=== PATIENT | male | born 1940 | race Two or more races ===

== ENCOUNTER 2017-01-30 22:06 | Inpatient (IN) | payer OTHER, MEDICAID ==
[~2017-01-30] VITALS: Ht 167.6 cm; Wt 91.2 kg
[~2017-01-30 22:06] MED LIST: KEFLEX500 MG ORAL
[2017-01-30 22:57] LABS: BASOPHILS % (AUTO) 0.8 % (0.0-2.0); EOSINOPHILS % (AUTO) 2.2 % (0.0-3.0); LYMPHOCYTES % (AUTO) 37.1 % (20.0-45.0); MEAN CORPUSCULAR HEMOGLOBIN 26.4 PG (27.0-31.0); MEAN CORPUSCULAR HGB CONC 32.1 G/DL (32.0-36.0); MEAN CORPUSCULAR VOLUME 82 FL (80-99); MEAN PLATELET VOLUME 6.2 FL (6.5-10.1); NEUTROPHILS % (AUTO) 47.9 % (45.0-75.0); PLATELET COUNT 295 K/UL (150-450); RED BLOOD COUNT 4.05 M/UL (4.70-6.10); WHITE BLOOD COUNT 7.1 K/UL (4.8-10.8)
[2017-01-30 23:09] LABS: ALANINE AMINOTRANSFERASE 15 U/L (3-41); ALBUMIN/GLOBULIN RATIO 1.5 (1.0-2.7); ANION GAP 10 (5-15); ASPARTATE AMINO TRANSFERASE 14 U/L (5-40); CALCIUM 9.5 mg/dL (8.6-10.2); CARBON DIOXIDE 26 mEQ/L (20-30); CHLORIDE 100 mEQ/L (98-107); CREATININE 1.2 mg/dL (0.7-1.2); HEMOLYSIS 4; POTASSIUM 5.3 mEQ/L (3.4-4.9); SODIUM 136 mEQ/L (135-145)
[2017-01-30 23:10] LABS: TROPONIN I < 0.30 ng/mL (<=0.30)
[2017-01-30 23:19] LABS: CKMB < 1.5 ng/mL (< 6.7)
[2017-01-30] MEDS ORDERED: Albuterol ud Inhalation HHN ONE (23:30)
[2017-01-31] VITALS (7 sets, daily range): BP systolic 127–142; BP diastolic 56–80
--- NOTE | 2017-01-31 00:57 | Emergency Room Report ---
History of Present Illness General Chief Complaint: Chest Pain Source: Patient Present Illness HPI 76YOM walk-in with substernal chest pain radiating to upper chest 8 hours prior while at work doing physical work. Took nitro many hours later with improvement in symptoms Now with just "a little pain." On Xarelto History of HTN, DM, HLD On digoxin Allergies: Coded Allergies: No Known Allergies (Unverified , 03/16/16) Patient History Past Medical History: DM, HTN, other - HLD Past Surgical History: pacemaker Pertinent Family History: none Social History: Denies: alcohol use, drug use, smoking Immunizations: UTD Reviewed Nursing Documentation: PMH: Agreed, PSxH: Agreed Nursing Documentation-PMH Hx Cardiac Problems: Yes - PACEMAKER Hx Hypertension: Yes Hx Pacemaker: Yes Hx Diabetes: Yes Review of Systems All Other Systems: negative except mentioned in HPI Physical Exam Vital Signs Date Time Temp Pulse Resp B/P Pulse Ox O2 Delivery O2 Flow Rate FiO2 01/30/17 22:17 98.1 60 16 153/70 98 Room Air Sp02 EP Interpretation: reviewed, normal General Appearance: normal inspection, well appearing, no apparent distress, alert, GCS 15, non-toxic Head: normocephalic Eyes: bilateral eye EOMI, bilateral eye PERRL ENT: normal ENT inspection, hearing grossly normal, normal voice Neck: normal inspection, full range of motion, supple, no bony tend Respiratory: normal inspection, lungs clear, normal breath sounds, no respiratory distress, no retraction, no wheezing Cardiovascular #1: regular rate, rhythm, no edema Gastrointestinal: normal inspection, normal bowel sounds, non tender, soft, no guarding, no hernia Genitourinary: no CVA tenderness Musculoskeletal: normal inspection, back normal, normal range of motion, Trisha' s Sign negative Neurologic: normal inspection, alert, oriented x3, responsive, data capture specialist III-XII nml as tested, motor strength/tone normal, speech normal Psychiatric: normal inspection, judgement/insight normal, mood/affect normal Skin: normal inspection, normal color, no rash Medical Decision Making Medicare Attestation I Derrell Moses MD hereby attest that the medical record entry for date of service, 06/10/16 accurately reflects signatures/notations that I made in my capacity as MD when I treated/diagnosed the above listed Medicare beneficiary. I attest that this information is true, accurate and complete to the best of my knowledge. I understand that any falsification, omission, or concealment of material fact may subject me to administrative, civil, or criminal liability. This patient warrants hospital admission for extreme of age and has a condition that cannot be treated as outpatient. Diagnostic Impression: Primary Impression: Chest pain Qualified Codes: R07.9 - Chest pain, unspecified Additional Impressions: Hyperkalemia Hyperglycemia ER Course chest pain - VSS. Afebrile - Improved since self-admin nitro - Was given PM dose of Xarelto in ED - ECG is ventricular paced - CXR: No PNA or CHF - pacer noted - trop 0 HyperK - Dig level pending. field technical assistant says "its a send out." - Was NOT given calcium - Give neb, insulin in ED Endorsed to Dr Stark as per [facility] for tele admit at 1am EKG Diagnostic Results Rate: other - Ventricular paced ST Segments: no acute changes Other Impression On xarelto ASA given to the pt in ED: No Chest X-Ray Diagnostic Results Chest X-Ray Diagnostic Results : Chest X-Ray Ordered: Yes # of Views/Limited/Complete: 1 View Indication: Chest Pain EP Interpretation: Yes Interpretation: no consolidation, no effusion, no pneumothorax, no acute cardiopulmonary disease, other - + pacemaker Impression: No acute disease Interpreting ER Provider: Electronically signed by Dr Moses Last Vital Signs Date Time Temp Pulse Resp B/P Pulse Ox O2 Delivery O2 Flow Rate FiO2 01/31/17 00:04 60 17 100 Room Air 01/30/17 22:17 98.1 153/70 Status: improved Disposition: ADMITTED INPATIENT Condition: Serious Referrals: PREFERRED [facility],REFERRING (PCP) DERRELL MOSES M.D. Jan 31, 2017 00:57
[2017-01-31] MEDS ORDERED: Xarelto 10mg tab ORAL SCH (01:00)
[2017-01-31] MEDS ORDERED: DIGOXIN125 MCG ORAL (03:13)
[2017-01-31] MEDS ORDERED: NITROSTAT0.4 M1 SL (03:13)
[2017-01-31] MEDS ORDERED: ALDACTONE25 MG ORAL (03:13)
[2017-01-31] MEDS ORDERED: LEVOTHYROXINE100 MCG ORAL (03:13)
[2017-01-31] MEDS ORDERED: CRESTOR10 M2 ORAL (03:13)
[2017-01-31] MEDS ORDERED: METFORMIN HCL850 M1 ORAL (03:13)
[2017-01-31] MEDS ORDERED: XARELTO20 MG ORAL (03:13)
[2017-01-31] MEDS ORDERED: GLIPIZIDE10 MG PO (03:13)
[2017-01-31] MEDS ORDERED: CARVEDILOL25 MG ORAL (03:13)
[2017-01-31] MEDS ORDERED: ACTOS45 MG ORAL (03:13)
[2017-01-31] MEDS ORDERED: LOSARTAN POTAS100 MG ORAL (03:13)
[2017-01-31] MEDS ORDERED: Enalaprilat 2.5mg/2ml Inj IV PRN (06:30)
[2017-01-31] MEDS ORDERED: Nitroglycerin Subl 0.4mg tab (Bottle Of 25) SL PRN (06:30)
[2017-01-31] MEDS ORDERED: Ketorolac 30mg Inj IV PRN (06:30)
[2017-01-31] MEDS ORDERED: Miralax 17gm pkt ORAL PRN (06:30)
[2017-01-31] MEDS ORDERED: Morphine Sulfate 2mg/ml Inj IVP PRN (06:30)
[2017-01-31] MEDS ORDERED: Diltiazem 25mg/5ml IV PRN (06:30)
[2017-01-31] MEDS ORDERED: NovoLOG Insulin Flexpen SUBQ SCH (06:30)
[2017-01-31] MEDS ORDERED: DuoNeb 0.5-3(2.5)mg/3ml neb HHN PRN (06:30)
[2017-01-31 08:26] LABS: TROPONIN I < 0.30 ng/mL (<=0.30)
[2017-01-31 08:29] LABS: ANION GAP 12 (5-15); CALCIUM 9.1 mg/dL (8.6-10.2); CARBON DIOXIDE 24 mEQ/L (20-30); CHLORIDE 99 mEQ/L (98-107); CREATININE 0.9 mg/dL (0.7-1.2); HEMOLYSIS 9; POTASSIUM 4.7 mEQ/L (3.4-4.9); SODIUM 135 mEQ/L (135-145)
[2017-01-31] MEDS ORDERED: Aspirin Baby 81mg ORAL SCH (09:00)
[2017-01-31] MEDS ORDERED: Carvedilol 25mg Tab ORAL SCH (09:00)
[2017-01-31] MEDS ORDERED: Digoxin 0.125mg tab ORAL SCH (09:00)
[2017-01-31] MEDS: NovoLOG Insulin Flexpen SUBQ SCH ×2 (11:36→16:29)
--- NOTE | 2017-01-31 11:47 | Diagnostic Imaging Report ---
Indication: PAIN Technique: One view of the chest Comparison: none Findings: The heart is enlarged. There is a left ventricular biventricular AICD with 2 ventricular leads. No definite infiltrates, effusions, or congestion. Impression: Cardiomegaly. No definite acute process
[2017-01-31] MEDS ORDERED: Heparin 5000 units/ml inj SUBQ SCH (14:00)
--- NOTE | 2017-01-31 15:19 | History and Physical ---
History of Present Illness General Date patient seen: Jan 31, 2017 Reason for Hospitalization: Chest Pain Present Illness HPI 76 year old male with hx of ICD, pace maker walk-in with substernal chest pain radiating to upper chest 8 hours prior while at work doing physical work. Took nitro many hours later with improvement in symptoms. He states he didn't want to take any changes. Allergies: Coded Allergies: No Known Allergies (Unverified , 03/16/16) Medication History Scheduled Carvedilol* (Carvedilol*), 25 MG ORAL EVERY 12 HOURS, (Reported) Digoxin* (Digoxin*), 125 MCG ORAL DAILY, (Reported) Glipizide (Glipizide), 10 MG PO TID, (Reported) Levothyroxine Sodium* (Levothyroxine Sodium*), 100 MCG ORAL DAILY, (Reported) Losartan Potassium (Losartan Potassium), 100 MG ORAL DAILY, (Reported) Metformin Hcl* (Metformin Hcl*), 850 MG ORAL TID, (Reported) Pioglitazone Hcl* (Actos*), 45 MG ORAL DAILY, (Reported) Rivaroxaban (Xarelto), 20 MG ORAL DAILY, (Reported) Rosuvastatin Calcium* (Crestor*), 10 MG ORAL DAILY, (Reported) Spironolactone (Aldactone), 25 MG ORAL DAILY, (Reported) Scheduled PRN Nitroglycerin (Nitrostat), 0.4 MG SL Q5M X3 DOSES PRN for CHEST PAIN, (Reported) Discontinued Medications Cephalexin* (Keflex*), 500 MG ORAL TID PRN for Itching Discontinued Reason: Pt stopped taking med Patient History Healthcare decision maker Resuscitation status Full Code Advanced Directive on File Past Medical/Surgical History Past Medical/Surgical History: (1) ICD (implantable cardioverter-defibrillator) in place (2) Cardiomyopathy Review of Systems All Other Systems: negative except mentioned in HPI Physical Exam General Appearance: WD/WN Lines, tubes and drains: peripheral HEENT: normocephalic, atraumatic Neck: non-tender, normal alignment, limited range of motion Respiratory/Chest: lungs clear Abdomen: normal bowel sounds, non tender Genitourinary/Rectal: normal genital exam Extremities: normal range of motion Skin Exam: normal pigmentation Neurologic: market consultant II-XII grossly normal Last 24 Hour Vital Signs Date Time Temp Pulse Resp B/P Pulse Ox O2 Delivery O2 Flow Rate FiO2 01/31/17 12:11 60 01/31/17 12:00 97.5 75 20 132/75 98 Room Air 01/31/17 08:27 60 01/31/17 08:27 60 137/66 01/31/17 08:00 97.9 60 20 137/66 97 Room Air 01/31/17 07:34 63 01/31/17 07:27 60 18 Room Air 01/31/17 05:02 60 01/31/17 04:00 96.8 60 20 142/66 97 Room Air 01/31/17 04:00 96.8 60 20 142/66 97 Room Air 01/31/17 02:45 63 01/31/17 02:40 96.8 61 20 140/60 98 Room Air 01/31/17 02:29 98.1 80 17 138/78 100 Room Air 01/31/17 02:27 98.1 80 17 138/78 100 Room Air 01/31/17 00:04 60 17 100 Room Air 01/31/17 00:00 98.1 80 19 133/80 98 Room Air 01/30/17 23:56 62 19 Room Air 01/30/17 23:56 62 18 98 Room Air 01/30/17 22:35 60 16 01/30/17 22:17 98.1 60 16 153/70 98 Room Air Intake and Output 01/30/17 01/31/17 19:00 07:00 Intake Total 0 ml Balance 0 ml Intake Oral 0 ml # Voids 1 Laboratory Tests Test 01/30/17 22:30 01/31/17 07:50 White Blood Count 7.1 K/UL (4.8-10.8) Red Blood Count 4.05 M/UL (4.70-6.10) L Hemoglobin 10.7 G/DL (14.2-18.0) L Hematocrit 33.2 % (42.0-52.0) L Mean Corpuscular Volume 82 FL (80-99) Mean Corpuscular Hemoglobin 26.4 PG (27.0-31.0) L Mean Corpuscular Hemoglobin Concent 32.1 G/DL (32.0-36.0) Red Cell Distribution Width 16.0 % (11.6-14.8) H Platelet Count 295 K/UL (150-450) Mean Platelet Volume 6.2 FL (6.5-10.1) L Neutrophils (%) (Auto) 47.9 % (45.0-75.0) Lymphocytes (%) (Auto) 37.1 % (20.0-45.0) Monocytes (%) (Auto) 12.0 % (1.0-10.0) H Eosinophils (%) (Auto) 2.2 % (0.0-3.0) Basophils (%) (Auto) 0.8 % (0.0-2.0) Sodium Level 136 mEQ/L (135-145) 135 mEQ/L (135-145) Potassium Level 5.3 mEQ/L (3.4-4.9) H 4.7 mEQ/L (3.4-4.9) Chloride Level 100 mEQ/L (98-107) 99 mEQ/L (98-107) Carbon Dioxide Level 26 mEQ/L (20-30) 24 mEQ/L (20-30) Anion Gap 10 (5-15) 12 (5-15) Blood Urea Nitrogen 19 mg/dL (7-23) 16 mg/dL (7-23) Creatinine 1.2 mg/dL (0.7-1.2) 0.9 mg/dL (0.7-1.2) Estimat Glomerular Filtration Rate mL/min (>60) mL/min (>60) Glucose Level 302 mg/dL (74-106) H 280 mg/dL (74-106) H Calcium Level 9.5 mg/dL (8.6-10.2) 9.1 mg/dL (8.6-10.2) Total Bilirubin < 0.2 mg/dL (0.0-1.2) Aspartate Amino Transf (AST/SGOT) 14 U/L (5-40) Alanine Aminotransferase (ALT/SGPT) 15 U/L (3-41) Alkaline Phosphatase 75 U/L (40-129) Total Creatine Kinase 138 U/L (38-174) Creatine Kinase MB < 1.5 ng/mL (< 6.7) Creatine Kinase MB Relative Index 1.0 Troponin I < 0.30 ng/mL (<=0.30) < 0.30 ng/mL (<=0.30) Total Protein 7.0 g/dL (6.6-8.7) Albumin 4.2 g/dL (3.5-5.2) Globulin 2.8 g/dL Albumin/Globulin Ratio 1.5 (1.0-2.7) Digoxin Level 0.3 ng/mL (0.5-2.0) L Height (Feet): 5 Height (Inches): 6.00 Weight (Pounds): 201 Medications Current Medications Medications (Trade) Dose Ordered Sig/Sweta Route PRN Reason Start Time Stop Time Status Last Admin Dose Admin Acetaminophen (Tylenol) 650 mg Q4H PRN ORAL FEVER 01/31/17 06:30 03/02/17 06:29 Albuterol/ Ipratropium (DuoNeb 0.5-3(2.5)mg/3ml) 3 ml EVERY 4 HOURS PRN HHN Shortness of Breath 01/31/17 06:30 02/05/17 06:29 Aspirin (ASA) 162 mg DAILY ORAL 01/31/17 09:00 03/02/17 08:59 01/31/17 08:27 Carvedilol (Coreg) 25 mg EVERY 12 HOURS ORAL 01/31/17 09:00 03/02/17 08:59 01/31/17 08:27 Dextrose (Dextrose 50%) STAT PRN IV Hypoglycemia 01/31/17 06:30 03/02/17 06:29 Digoxin (Lanoxin) 0.125 mg DAILY ORAL 01/31/17 09:00 03/02/17 08:59 01/31/17 08:27 Diltiazem HCl (Cardizem) 10 mg EVERY HOUR PRN IV heart rate more than 120, 01/31/17 06:30 03/02/17 06:29 Enalaprilat (Vasotec) 2.5 mg EVERY 6 HOURS PRN IV sbp more than 160 01/31/17 06:30 03/02/17 06:29 Insulin Aspart (NovoLOG) BEFORE MEALS AND HS SUBQ 01/31/17 11:30 03/02/17 11:29 01/31/17 11:36 Ketorolac Tromethamine (Toradol 30mg) 30 mg Q6HR PRN IV moderate pain ( 4-6) 01/31/17 06:30 02/05/17 06:29 Levothyroxine Sodium (Synthroid) 100 mcg DAILY ORAL 01/31/17 09:00 03/02/17 08:59 01/31/17 08:27 Morphine Sulfate (Morphine Sulfate) 2 mg EVERY 4 HOURS PRN IVP severe Pain (Pain Scale 7-10) 01/31/17 06:30 02/07/17 06:29 Nitroglycerin (Ntg) 0.4 mg Q5 MINS PRN SL Prn Chest Pain 01/31/17 06:30 03/02/17 06:29 Ondansetron HCl (Zofran) 4 mg Q6H PRN IVP Nausea & Vomiting 01/31/17 06:30 03/02/17 06:29 Pantoprazole (Protonix) 40 mg DAILY ORAL 01/31/17 09:00 03/02/17 08:59 01/31/17 08:27 Polyethylene Glycol (Miralax) 17 gm DAILYPRN PRN ORAL Constipation 01/31/17 06:30 03/02/17 06:29 Rivaroxaban (Xarelto) 20 mg DAILY ORAL 02/01/17 09:00 03/03/17 08:59 Rivaroxaban (Xarelto) 20 mg STAT ORAL 01/31/17 01:00 03/02/17 00:59 01/31/17 01:16 Temazepam (Restoril) 15 mg HSPRN PRN ORAL Insomnia 01/31/17 06:30 02/07/17 06:29 Assessment/Plan Problem List: (1) ICD (implantable cardioverter-defibrillator) in place ICD Codes: Z95.810 - Presence of automatic (implantable) cardiac defibrillator SNOMED: 261272827, [id number] (2) Cardiomyopathy ICD Codes: I42.9 - Cardiomyopathy, unspecified SNOMED: 49337109 (3) Chest pain ICD Codes: R07.9 - Chest pain, unspecified SNOMED: 81865654 Qualifiers: Qualified Codes: R07.9 - Chest pain, unspecified Assessment/Plan echo serial troponin cardiology evaluation MED APARICIO Jan 31, 2017 15:19
--- NOTE | 2017-01-31 17:05 | Cardiology Progress Note ---
Assessment/Plan Assessment/Plan [id number] non exertional cp no myonecroisi s depite 4 hour of cp ekg non diagnositc echo fucntion ok may benefit form stress test at some point has diabetic if not done so recenty ambualte in halls for now if no cp can go home he has appoint with his cardiologit on and based on his priero record with his pastor he may decide if pt needs one or not Objective Last 24 Hour Vital Signs Date Time Temp Pulse Resp B/P Pulse Ox O2 Delivery O2 Flow Rate FiO2 01/31/17 16:00 97.4 61 20 127/56 97 Room Air 01/31/17 15:18 61 01/31/17 12:11 60 01/31/17 12:00 97.5 75 20 132/75 98 Room Air 01/31/17 08:27 60 01/31/17 08:27 60 137/66 01/31/17 08:00 97.9 60 20 137/66 97 Room Air 01/31/17 07:34 63 01/31/17 07:27 60 18 Room Air 01/31/17 05:02 60 01/31/17 04:00 96.8 60 20 142/66 97 Room Air 01/31/17 04:00 96.8 60 20 142/66 97 Room Air 01/31/17 02:45 63 01/31/17 02:40 96.8 61 20 140/60 98 Room Air 01/31/17 02:29 98.1 80 17 138/78 100 Room Air 01/31/17 02:27 98.1 80 17 138/78 100 Room Air 01/31/17 00:04 60 17 100 Room Air 01/31/17 00:00 98.1 80 19 133/80 98 Room Air 01/30/17 23:56 62 19 Room Air 01/30/17 23:56 62 18 98 Room Air 01/30/17 22:35 60 16 01/30/17 22:17 98.1 60 16 153/70 98 Room Air Intake and Output 01/30/17 01/31/17 19:00 07:00 Intake Total 0 ml Balance 0 ml Intake Oral 0 ml # Voids 1 Laboratory Tests Test 01/30/17 22:30 01/31/17 07:50 White Blood Count 7.1 K/UL (4.8-10.8) Red Blood Count 4.05 M/UL (4.70-6.10) L Hemoglobin 10.7 G/DL (14.2-18.0) L Hematocrit 33.2 % (42.0-52.0) L Mean Corpuscular Volume 82 FL (80-99) Mean Corpuscular Hemoglobin 26.4 PG (27.0-31.0) L Mean Corpuscular Hemoglobin Concent 32.1 G/DL (32.0-36.0) Red Cell Distribution Width 16.0 % (11.6-14.8) H Platelet Count 295 K/UL (150-450) Mean Platelet Volume 6.2 FL (6.5-10.1) L Neutrophils (%) (Auto) 47.9 % (45.0-75.0) Lymphocytes (%) (Auto) 37.1 % (20.0-45.0) Monocytes (%) (Auto) 12.0 % (1.0-10.0) H Eosinophils (%) (Auto) 2.2 % (0.0-3.0) Basophils (%) (Auto) 0.8 % (0.0-2.0) Sodium Level 136 mEQ/L (135-145) 135 mEQ/L (135-145) Potassium Level 5.3 mEQ/L (3.4-4.9) H 4.7 mEQ/L (3.4-4.9) Chloride Level 100 mEQ/L (98-107) 99 mEQ/L (98-107) Carbon Dioxide Level 26 mEQ/L (20-30) 24 mEQ/L (20-30) Anion Gap 10 (5-15) 12 (5-15) Blood Urea Nitrogen 19 mg/dL (7-23) 16 mg/dL (7-23) Creatinine 1.2 mg/dL (0.7-1.2) 0.9 mg/dL (0.7-1.2) Estimat Glomerular Filtration Rate mL/min (>60) mL/min (>60) Glucose Level 302 mg/dL (74-106) H 280 mg/dL (74-106) H Calcium Level 9.5 mg/dL (8.6-10.2) 9.1 mg/dL (8.6-10.2) Total Bilirubin < 0.2 mg/dL (0.0-1.2) Aspartate Amino Transf (AST/SGOT) 14 U/L (5-40) Alanine Aminotransferase (ALT/SGPT) 15 U/L (3-41) Alkaline Phosphatase 75 U/L (40-129) Total Creatine Kinase 138 U/L (38-174) Creatine Kinase MB < 1.5 ng/mL (< 6.7) Creatine Kinase MB Relative Index 1.0 Troponin I < 0.30 ng/mL (<=0.30) < 0.30 ng/mL (<=0.30) Total Protein 7.0 g/dL (6.6-8.7) Albumin 4.2 g/dL (3.5-5.2) Globulin 2.8 g/dL Albumin/Globulin Ratio 1.5 (1.0-2.7) Digoxin Level 0.3 ng/mL (0.5-2.0) L Hemoglobin A1c 11.5 % (< 6.0) H GUILLE BOLDEN Jan 31, 2017 17:05
--- NOTE | 2017-02-01 04:31 | Consultation ---
DATE OF CONSULTATION: 01/31/2017 CARDIOLOGY CONSULTATION REFERRING PHYSICIAN: Scar Stark M.D. REASON FOR REFERRAL: Chest pain. HISTORY OF PRESENT ILLNESS: This is a 76-year-old gentleman with history of cardiomyopathy and intracardiac defibrillator placement, presented to the hospital because of chest pain that lasted approximately three or four hours, not very severe, upper sternal area. He has had a similar episode approximately one year ago for which he was hospitalized, apparently nothing abnormal was noted at that time. He has had a stress test last year and nothing abnormal according to himself was noted to him. He states the pain is a burning sensation. No relieving or exacerbating factors have been noted by the patient. In fact, he is active. He is climbing upstairs and carrying some light material and does not ever have any chest pain with activity, the pain usually is not activity related. He does not have any PND or orthopnea. No dyspnea on exertion. No palpitations. No dizziness or lightheadedness. PAST MEDICAL HISTORY: Positive for history of congestive heart failure, possibly prior history of coronary artery disease and angioplasty approximately 15 years ago, that is not clear and he has got a history of defibrillator implantation. He is a diabetic. He does have high blood pressure and has not had any cholesterol. No cancer, stroke, hepatitis or tuberculosis. No asthma, emphysema, ulcers, kidney problems, liver problems, thyroid problems, anemia or arthritis. MEDICATIONS: He has been on blood thinners on prior occasions, which he is on because of irregular heart rhythm apparently. ALLERGIES: He has no known drug allergies. SOCIAL HISTORY: He used to smoke and drink 25 years ago. No drug use. REVIEW OF SYSTEMS: Gastrointestinal: Denies any nausea, vomiting, diarrhea, or constipation. Genitourinary: Denies any discomfort on urination, although he did have urinary tract infection previously. Constitutional: Negative. Neurologic: Numbness and tingling sensation in his feet that at times limit his walking ability. PHYSICAL EXAMINATION: VITAL SIGNS: His blood pressure is anywhere between 127/56 to 137/66, temperature is 97.4 degrees, heart rate in the 60s and 97% saturation on room air. GENERAL: The patient is an elderly gentleman, no apparent respiratory distress. NECK: Supple. No jugular venous distention. There is a left-sided carotid bruit. LUNGS: Clear to auscultation and percussion. CARDIAC: S1 is normal. S2 is normal. Regular rate and rhythm. No heaves, thrills, or gallops noted. There is a systolic ejection murmur noted. ABDOMEN: Soft and nontender. Positive bowel sounds. EXTREMITIES: There is no clubbing, cyanosis, nor is there any edema. NEUROLOGIC: He is awake, alert, responsive, and in no apparent respiratory distress. LABORATORY DATA: White count of 7.1, hemoglobin 10.7, and platelet count of 295,000. Sodium is 135, potassium 4.7, chloride 99, bicarbonate 24, BUN of 16, creatinine 0.9, and glucose of 280. His blood sugars returned at 283 and 105. His A1c is elevated at 11.5. Cardiac enzymes on two separate occasions were negative between last night and this morning. His albumin is 4.2. His urinalysis is 5-10 WBCs and 2+ leukocyte esterase. Digoxin level 0.3. E .coli shows urinary tract infection with the E. coli 60,000-70,000 colonies, sensitivities are noted in the chart. IMAGING: A chest x-ray performed, shows cardiomegaly. No evidence of acute processes. Venous duplex study of the lower extremities, no evidence of thrombus. A preliminary echocardiogram shows ejection fraction 55% to 60%, moderate biatrial enlargement, right ventricular size normal, dilated IVC, increased RA pressure, pacemaker in RV, restrictive pattern inflow suggestive of diastolic relaxation abnormalities, left atrial pressure increased. His telemetry shows atrial fibrillation, ventricular pacing. His electrocardiogram, I am unable to find his EKG in the chart; however, EKG reportedly showed ventricular pacing by the emergency room physician similar to what I have seen and suspected on the patient's telemetry data that shows may need ventricular pace, no evidence of atrial activity being noted on the telemetry strips. ASSESSMENT: 1. Chest pain, atypical. No evidence of myonecrosis. 2. History of implantable cardioverter-defibrillator implantation. 3. Possible diastolic failure, chronic in nature. 4. Diabetes mellitus with chronic poor control with elevated A1c. 5. Urinary tract infection. PLAN: Dr. Stark, this patient was seen in cardiac consultation. The patient does not have any evidence of myonecrosis despite three or four hours of chest pain that he describes having had yesterday and no longer is experiencing any chest pain. His cardiac enzymes are completely negative. He has had a chance to walk around the halls here today. His chest x-ray is unremarkable. His electrocardiogram unfortunately is not diagnostic due to the presence of pacing reportedly although the nursing staff are repeating his EKG at the present time. His echocardiogram shows normal LV function with evidence of some diastolic relaxation abnormalities, although that may not completely be true as the patient has atrial fibrillation. I doubt that echocardiogram will be diagnostic for that. Nevertheless, he is not experiencing evidence of acute congestive heart failure at the present time. He has had a stress test previously that was negative. He does certainly have risk factors for coronary artery disease. So, it may be at some point he should undergo stress testing. He probably can be discharged home in light of the fact that he has had no evidence of myonecrosis and no recurrent chest pain with walking in the hallways negative and have the patient follow up as outpatient with his upholstery handler for stress testing in the near future. Williams Bradshaw M.D. DR: JAGUAR JOB#: [id number] CC:
[2017-02-01] MEDS ORDERED: Xarelto 10mg tab ORAL SCH (09:00)
--- NOTE | 2017-02-03 09:25 | Discharge Summary ---
Discharge Summary Hospital Course Date of Admission Jan 30, 2017 at 23:17 Date of Discharge Jan 31, 2017 at 18:10 Admitting Diagnosis chest pain HPI Paul Barcenas is a 76 year old male who was admitted on Jan 30, 2017 at 23:17 for Chest Pain Hospital Course dc summary #[id number] Discharge Medications Continued Medications: Carvedilol* (Carvedilol*) 25 Mg Tablet 25 MG ORAL EVERY 12 HOURS, TAB Digoxin* (Digoxin*) 125 Mcg Tablet 125 MCG ORAL DAILY, TAB Glipizide (Glipizide) 10 Mg Tablet 10 MG PO TID, TAB Levothyroxine Sodium* (Levothyroxine Sodium*) 100 Mcg Tablet 100 MCG ORAL DAILY, TAB Take in the morning on an empty stomach, at least 30 minutes before food. Losartan Potassium (Losartan Potassium) 100 Mg Tablet 100 MG ORAL DAILY, TAB Metformin Hcl* (Metformin Hcl*) 850 Mg Tablet 850 MG ORAL TID, TAB Nitroglycerin (Nitrostat) 0.4 Mg Tab.subl 0.4 MG SL Q5M X3 DOSES PRN for CHEST PAIN, #25 TAB 0 Refills Pioglitazone Hcl* (Actos*) 45 Mg Tablet 45 MG ORAL DAILY, TAB Rivaroxaban (Xarelto) 20 Mg Tablet 20 MG ORAL DAILY for 30 Days, MG 0 Refills Rosuvastatin Calcium* (Crestor*) 10 Mg Tablet 10 MG ORAL DAILY, TAB Spironolactone (Aldactone) 25 Mg Tablet 25 MG ORAL DAILY, TAB Discharge Condition Upon Discharge: stable Discharge Disposition Patient was discharged to Home (01) Discharge Diagnoses: Discharge Instructions Discharge Instructions Special Instructions I have been assigned to complete a D/C Summary on this account. I was not involved in the patient management Nathalia Todd NP ([place]) Feb 03, 2017 09:25
--- NOTE | 2017-02-03 17:06 | Cardiology Report ---
APPROVED REPORT EXAM: Two-dimensional and M-mode echocardiogram with Doppler and color Doppler. INDICATION LV function M-Mode DIMENSIONS IVSd1.5 (0.7-1.1cm)Left Atrium (MM)5.6 (1.6-4.0cm) LVDd4.3 (3.5-5.6cm)Aortic Root3.8 (2.0-3.7cm) PWd1.8 (0.7-1.1cm)Aortic Cusp Exc.1.6 (1.5-2.0cm) IVSs2.2 cm LVDs2.6 (2.5-4.0cm) PWs2.3 cm Normal left ventricular chamber size, systolic function and wall motion. Left ventricular ejection fraction estimated to be 55-60 %. Mild left ventricular hypertrophy. Anterior Echo-free space, may be due to pericardial fat or effusion. Moderate bi-atrial enlargement. Right ventricular chamber size is within normal limits. Focal aortic valve sclerosis with adequate cusp excursion. Thickened mitral valve leaflets with normal excursion. Mitral annulus and aortic root calcification. Mild aortic root dilatation. Pulmonic valve not well visualized. Normal tricuspid valve structure. IVC dilated at 2.5 cm with slight physiologic collapse suggestive of increased RA pressure. Pacemaker wire present in the right side chambers. A color flow and spectral Doppler study was performed and revealed: Trace aortic regurgitation. Mild mitral regurgitation. Mitral inflow cannot be assessed due to lack of "A" waves, possibly due to underlying atrial arrhythmias. Mild tricuspid regurgitation. Tricuspid systolic velocities suggests peak right ventricular systolic pressure of 40 mmHg, consistent with mild pulmonary hypertension. Pulmonic regurgitation present.
--- NOTE | 2017-02-04 03:45 | Discharge Summary 2 SIG ---
DATE OF ADMISSION: 01/30/2017 DATE OF DISCHARGE: 01/31/2017 REASON FOR ADMISSION: The patient is a 76-year-old male with history of hypertension, diabetes, hyperlipidemia, and AICD, presented to the emergency room with complaint of substernal chest pain radiating to the upper chest. Pain started after prior he was doing physical work. The patient took nitroglycerin later after work with some improvement in the symptoms, reported just a little pain. Initial troponin was negative. EKG shows V-pace. Chest x-ray shows cardiomegaly, but no acute cardiopulmonary process. The patient was afebrile and normotensive. Also, laboratory work revealed potassium of 5.3 and hyperkalemia was treated with insulin and nebulizer in the emergency department. Glucose was 302. The patient admitted for further management. ADMITTING DIAGNOSES: Include, 1. Chest pain, rule out acute coronary syndrome. 2. Cardiomegaly. 3. Automatic implantable cardioverter-defibrillator. 4. Hyperkalemia. 5. Hyperglycemia. 6. Diabetes mellitus, out of control. 7. Chronic diastolic heart failure. HOSPITAL COURSE: The patient admitted to the telemetry floor. Cardiology consult was requested. Supplemental oxygen and pulmonary toilet provided as needed. Pulse oximetry was stable on room air. Echocardiogram revealed preserved ejection fraction of 55% to 60% and right ventricular systolic pressure of 40 consistent with mild pulmonary hypertension, evidence of mild left ventricular hypertrophy, and moderate biatrial enlargement. Venous duplex bilateral lower extremity revealed no evidence of acute DVT. Blood pressure was managed with home antihypertensive medication. Blood sugar was managed with sliding scale of insulin in addition to oral anti-glycemic medication. Blocking Machine Operator seen and evaluated the patient. According to slitter helper, the patient has atypical chest pain likely related to exertion and physical work, no evidence of myonecrosis. The patient did not have any evidence of myonecrosis despite three or four hours of chest pain. Cardiac enzymes are negative. Chest x-ray unremarkable. Electrocardiogram not diagnostic due to the presence of pacing. Echocardiogram revealed normal left ventricular function with evidence of some diastolic relaxation. Even though the patient had a risk factor for coronary artery disease such as diabetes, hypertension, and hypercholesterolemia, slitter helper recommended that at some point he should undergo stress testing. He cleared the patient for discharge that he has no evidence of myonecrosis and no recurrent chest pain and follow up with his slitter helper as outpatient for stress testing in the near future. The patient was stable for discharge. DISCHARGE DIAGNOSES: Include: 1. Atypical chest pain, no evidence of myonecrosis (likely due to the physical work). 2. Cardiomegaly. 3. Automatic implantable cardioverter-defibrillator. 4. Hyperkalemia, resolved. 5. Diabetes mellitus, out of control. Of note, hemoglobin A1c was 11.5. The patient needs further optimization of blood glucose management as outpatient. 6. Chronic diastolic heart failure. 7. Hypertension. 8. Hypercholesterolemia. Of note, antihypertensive medications were resumed and continued. Blood pressure remained stable. Statin continue. DISCHARGE MEDICATIONS: See medication reconciliation list. DISCHARGE INSTRUCTIONS: The patient discharged home. Follow up with the primary medical doctor as scheduled in the near future, stress test with slitter helper, and to follow up with the primary medical doctor for tighter blood glucose management. Scar Stark M.D. I have been assigned to dictate discharge summary on this account and I was not involved in the patient's management. Nathlaia B[facility]iafrench hospitalSuk[facility] N.PDina DR: Capo JOB#: [id number] CC:
== END 2017-01-31 18:10 | disposition home or self-care (01) | DRG 313 ==
LOC: EMR 22:25 → 2E 23:17 → EDBEDREQ 01-31 00:25
DX: R07.89 Other chest pain (principal); I50.32 Chronic diastolic (congestive) heart failure; E11.65 Type 2 diabetes mellitus with hyperglycemia; N39.0 Urinary tract infection, site not specified; I10 Essential (primary) hypertension; Z95.810 Presence of automatic (implantable) cardiac defibrillator; E87.5 Hyperkalemia; E78.00 Pure hypercholesterolemia, unspecified; Z87.891 Personal history of nicotine dependence; I51.7 Cardiomegaly
CPT/HCPCS: 36415; 71010; 80048; 80053; 80162; 82550; 82553; 82962; 83036; 84484; 85025; 93005; 93306; 93970; 94640; 94664; J1815